=== PATIENT | female | born 1955 | race Caucasian/White ===

== ENCOUNTER → 2016-11-18 | Outpatient (CLI) | payer BC ==
[~2016-11-18] MED LIST: ALEN1TAB21 PO; CALC500C70 PO; CYCL0.052 OPB; ESTR1CRE PV; IRON PO; OMEG-26 PO
== END | disposition home or self-care (01) ==
LOC: C.LABBFT 13:33
PROVIDERS: ATTEND Internal Medicine
DX: Z11.59 Encounter for screening for other viral diseases (principal)

== ENCOUNTER → 2017-01-23 | Outpatient (CLI) | payer BC | END | disposition home or self-care (01) | LOC: C.PAPS 09:18 | PROVIDERS: ATTEND Internal Medicine | DX: Z00.00 Encounter for general adult medical examination without abnormal findings (principal) ==

== ENCOUNTER → 2017-09-30 | Outpatient (CLI) | payer BC ==
--- NOTE | 2017-10-01 13:44 | MAMMOGRAPHY REPORT ---
BILATERAL DIGITAL SCREENING MAMMOGRAM TOMOSYNTHESIS WITH CAD: 09/30/2017 CLINICAL HISTORY: Routine screening. Patient has no complaints. TECHNIQUE: Breast tomosynthesis in addition to standard 2D mammography was performed. Current study was also evaluated with a Computer Aided Detection (CAD) system. COMPARISON: Comparison is made to exams dated: 09/23/2016 mammogram, 09/20/2015 mammogram, 04/12/2015 mammogram, 10/06/2014 mammogram, 09/16/2014 mammogram, and 09/15/2013 mammogram - [facility]. BREAST COMPOSITION: There are scattered areas of fibroglandular density in both breasts. FINDINGS: The parenchymal pattern is similar to prior mammograms. There is a stable intramammary ly mph node in the upper outer posterior left breast. No developing mass, architectural distortion or c luster of suspicious microcalcifications is seen in either breast. IMPRESSION: ACR BI-RADS CATEGORY 2: BENIGN There is no mammographic evidence of malignancy. A 1 year screening mammogram is recommended. The pa tient will receive written notification of the results. Approximately 10% of breast cancers are not detected with mammography. A negative mammographic report should not delay biopsy if a clinically suggestive mass is present. Loraine Marques M.D. ay/:09/30/2017 16:19:59 Trim Crew Supervisor: Dimple GARCIA(Jhonatan)(M), [facility] letter sent: Normal 1/2 BI-RADS Code: ACR BI-RADS Category 2: Benign
== END | disposition home or self-care (01) ==
LOC: C.MAMM 10:47
PROVIDERS: ATTEND Internal Medicine
DX: Z12.31 Encounter for screening mammogram for malignant neoplasm of breast (principal)

== ENCOUNTER 2017-10-26 07:52 | Emergency (ER) | payer BC ==
[~2017-10-26] VITALS: Ht 157.5 cm; Wt 53.8 kg
[~2017-10-26 07:52] MED LIST changes: -ALEN1TAB21 PO; +ALEN35TA42 PO
[2017-10-26 07:55] VITALS: TEMP 37.2; Ht 157.5 cm; Wt 53.8 kg
[2017-10-26] MEDS ORDERED: HYDROCODONE/HOMATROPINE SYRUP 5MG/1.5MG 5ML UDP PO STA (08:05)
--- NOTE | 2017-10-26 08:07 | EMERGENCY ROOM VISIT NOTE ---
History Report prepared by Oliver: Lalita Benton Under the Supervision of: Dr. Ciro Ashraf M.D. First contact with patient: 08:01 Chief Complaint: COUGH Stated Complaint: BAD DEEP COUGH,STUFFY NOSE Nursing Triage Summary: pt reports nonproductive cough started late friday and has been getting worse. has been using cough med. last couple nights having nasal congestion History of Present Illness The patient is a 62 year old female who presents to the Emergency Room with complaints of a worsening cough beginning 5 days ago. The patient states she has had a humidifier in her room at night and has been taking decongestants. She states that her cough has been non-productive, but that it has been getting deeper. The patient also reports having chest tightness and nasal congestion over the last couple of days, but denies having fevers. She states that she has not been around anyone sick. She denies a history of smoking, lung disease, asthma, and heart problems. The patient states that she did get a flu shot this year. Source of History: patient Onset: 5 days ago Position: chest Quality: other (cough) Timing: worsening Associated Symptoms: No fevers Note: additional symptoms: chest tightness, nasal congestion Review of Systems See HPI for pertinent positives & negatives. A total of 10 systems reviewed and were otherwise negative. Past Medical & Surgical Surgical Problems: (1) H/O tubal ligation (2) Previous section Family History No pertinent family history Social History Smoking Status: Never Smoker Marital Status: Housing Status: lives with significant other Current/Historical Medications Scheduled Albuterol Hfa (Ventolin Hfa), 3 PUFFS INH Q6H Calcium/Vitamin D (Os-Mark 500 Plus D), 1 TAB PO BID Cyclosporine (Ophth) (Restasis), 1 DROPS OPB BID Estrogens, Conjugated Vaginal (Premarin), 1 GM PV 2XWK [place] 3 Fatty Wvtnb-Ndlkkj-Lly ([facility]), 3 CAP PO QAM Prednisone (Prednisone), 2 TAB PO DAILY [Iron], 65 MG PO BID Scheduled PRN Hydrocodone W/ Homatropine (Hycodan 5/1.5MG 5 Ml), 5 ML PO Q4H PRN for Cough Allergies Coded Allergies: No Known Allergies (Verified , 10/26/17) Physical Exam Vital Signs Date Time Temp Pulse Resp B/P (MAP) Pulse Ox O2 Delivery O2 Flow Rate FiO2 10/26/17 08:18 97 Room Air 10/26/17 07:55 37.2 88 18 146/90 96 Room Air Physical Exam GENERAL: Patient is in no acute distress. HEENT: No acute trauma, normocephalic atraumatic, mucous membranes moist, no nasal congestion, no scleral icterus. No throat erythema or exudate. NECK: No stridor, no adenopathy, no meningismus, trachea is midline. LUNGS: Clear to auscultation bilaterally, no wheeze, no rhonchi, breath sounds equal. Dry cough noted. HEART: Without murmurs gallops or rubs, regular rate and rhythm. ABDOMEN: Soft, nontender, bowel sounds positive, no hernias, no peritonitis. EXTREMITIES: No cyanosis or edema, full range of motion of all the joints without pain or difficulty, no signs for acute trauma. NEUROLOGIC: Oriented x 3, no acute motor or sensory deficits, no focal weakness. SKIN: No rash, no jaundice, no diaphoresis. Medical Decision & Procedures ER Provider Diagnostic Interpretation: Radiology results as stated below per my review and radiologist interpretation: CHEST ONE VIEW PORTABLE CLINICAL HISTORY: cough COMPARISON STUDY: No previous studies for comparison. FINDINGS: The cardiac and mediastinal contours are normal. There is no evidence of focal pulmonary consolidation. There is no evidence of failure. No pleural effusions are visualized.[ IMPRESSION: No active disease in the chest. Electronically signed by: Daniel Rolle M.D. 10/26/2017 8:35 AM Dictated Date/Time: 10/26/2017 8:35 AM Medications Administered Medications (Trade) Dose Ordered Sig/Josue Route Start Time Stop Time Status Last Admin Dose Admin Hydrocodone Bit/ Homatropine Methylb (Hycodan Syrup) 5 ml NOW STAT PO 10/26/17 08:05 10/26/17 08:07 DC 10/26/17 08:11 5 ML Albuterol (Ventolin Hfa Inhaler) 3 puffs NOW ONCE INH 10/26/17 08:15 10/26/17 08:16 DC 10/26/17 08:11 3 PUFFS ED Course 0802: The patient was evaluated in room A3. A complete history and physical exam was performed. 0805: Ordered Hycodan Syrup 5 ml PO. 0815: Ordered Albuterol 3 puffs INH. 0847: Ordered Prednisone 40 mg PO. 0850: Reevaluated the patient. Discussed results and discharge instructions: She verbalized understanding and agreement. The patient is ready for discharge. 0900: Ordered Hydrocodone Bit/Homatropine Methylb 1 homepack PO. Medical Decision The patient is a 62 year old female who presents to the ED with complaints of a cough. Differential diagnoses considered include pneumonia, bronchitis, influenza, pharyngitis, sinusitis, and CHF. The patient presents with 5 days of cough. No fever, no real shortness of breath. She has no history of asthma or COPD. On exam, the patient's lungs are clear. She is not toxic or febrile. Chest film does not show pneumonia. The patient received albuterol via [facility], oral Hycodan and oral prednisone. She is being discharged on the same. Hydration and rest were encouraged. If worsening, she can return. She appears to have a viral acute bronchitis. [place] Drug Monitoring Program Search Results: patient reviewed within database, no issues identified Medication Reconcilliation Current Medication List: was personally reviewed by me Blood Pressure Screening Patient's blood pressure: Elevated blood pressure Blood pressure disposition: Elevated BP felt to be situational Impression Primary Impression: Acute bronchitis Additional Impression: Cough Scribe Attestation The scribe's documentation has been prepared under my direction and personally reviewed by me in its entirety. I confirm that the note above accurately reflects all work, treatment, procedures, and medical decision making performed by me. Departure Information Dispostion Home / Self-Care Prescriptions Prednisone (Prednisone) 20 Mg Tab 2 TAB PO DAILY for 5 Days, #10 TAB Prov: Ciro Ashraf M.D. 10/26/17 Hydrocodone W/ Homatropine (HYCODAN 5/1.5MG 5 ML) 1 Syp Syp 5 ML PO Q4H Y for Cough, #120 ML Prov: Ciro Ashraf M.D. 10/26/17 Albuterol Hfa (VENTOLIN HFA) 200 Puffs/18373 Mcg Aers 3 PUFFS INH Q6H, #1 INHALER Prov: Ciro Ashraf M.D. 10/26/17 Referrals Teo Parra M.D. (PCP) Forms HOME CARE DOCUMENTATION FORM, IMPORTANT VISIT INFORMATION Patient Instructions My [facility] Additional Instructions prednisone daily for 5 days fluids rest albuterol 3 puffs every 4 hours hycodan cough syrup 1 tsp every 4 hours as needed return for worsening symptoms or worsening breathing chest film was clear today Problem Qualifiers
[2017-10-26] MEDS ORDERED: ALBUTEROL HFA 8 GM INHALER INH ONE (08:15)
--- NOTE | 2017-10-26 08:37 | DIAGNOSTIC IMAGING REPORT ---
CHEST ONE VIEW PORTABLE CLINICAL HISTORY: cough COMPARISON STUDY: No previous studies for comparison. FINDINGS: The cardiac and mediastinal contours are normal. There is no evidence of focal pulmonary consolidation. There is no evidence of failure. No pleural effusions are visualized.[ IMPRESSION: No active disease in the chest. Electronically signed by: Daniel Rolle M.D. 10/26/2017 8:35 AM Dictated Date/Time: 10/26/2017 8:35 AM
[2017-10-26] MEDS ORDERED: PRED20TA PO (08:51)
[2017-10-26] MEDS ORDERED: VNTHFA/IN INH (08:51)
[2017-10-26] MEDS ORDERED: HYDR5SYP11 PO (08:51)
[2017-10-26] MEDS ORDERED: HYCODAN 60ML BOTTLE HOMEPACK PO ONE (09:00)
[2017-10-26 09:04] VITALS: BP 143/98; PULSE 83; O2SAT 96
== END 2017-10-26 09:10 | disposition home or self-care (01) ==
LOC: C.EDB 07:53 → C.EDA 09:10
DX: J20.9 Acute bronchitis, unspecified (principal); Z98.51 Tubal ligation status; Z79.899 Other long term (current) drug therapy

== ENCOUNTER → 2018-01-29 | Outpatient (CLI) | payer BC ==
[~2018-01-29] MED LIST changes: -ALEN35TA42 PO; +VNTHFA/IN INH
== END | disposition home or self-care (01) ==
LOC: C.LABBFT 11:32
PROVIDERS: ATTEND Internal Medicine
DX: R23.2 Flushing (principal)

== ENCOUNTER → 2018-02-24 | Outpatient (CLI) | payer BC | END | disposition home or self-care (01) | LOC: C.MAMM 14:05 | PROVIDERS: ATTEND Internal Medicine | DX: M85.88 Other specified disorders of bone density and structure, other site (principal); M85.851 Other specified disorders of bone density and structure, right thigh; M85.852 Other specified disorders of bone density and structure, left thigh ==